=== PATIENT | female | born 1975 | race Caucasian/White ===

== ENCOUNTER 2017-08-18 10:59 | Emergency (ER) | payer MEDICAID ==
[~2017-08-18] VITALS: Ht 162.6 cm; Wt 90.7 kg
[~2017-08-18 10:59] MED LIST: AMOX875T PO; METH10TA4 PO
[2017-08-18] MEDS ORDERED: ESCI10TA10 PO (11:42)
[2017-08-18] MEDS ORDERED: NALT50TA PO (11:42)
[2017-08-18] MEDS ORDERED: LORazepam 2 MG/ML, 1ML IVPush ONE (12:00)
[2017-08-18] MEDS ORDERED: THIAMINE 100MG TABLET PO ONE (12:00)
[2017-08-18] MEDS ORDERED: SODIUM CHLORIDE 0.9% 1,000ML IVBOLUS ONE (12:00)
[2017-08-18] MEDS ORDERED: LORazepam 2 MG/ML, 1ML ONE (12:11)
[2017-08-18] MEDS ORDERED: THIAMINE 100MG TABLET ONE (12:11)
[2017-08-18 12:16] LABS: BASOPHILS % (AUTO) 1 % (0-1); EOSINOPHILS # (AUTO) 0.05 x10^3/uL (0-0.4); EOSINOPHILS % (AUTO) 1 % (1-7); LYMPHOCYTES % (AUTO) 26 % (22-44); MD NO; MEAN CORPUSCULAR HEMOGLOBIN 30.4 pg (27.0-34.8); MEAN CORPUSCULAR HGB CONC 33.7 g/dL (32.4-35.8); MEAN PLATELET VOLUME 7.9 fL (7.4-10.4); MONOCYTES # (AUTO) 0.54 x10^3/uL (0.2-0.8); MONOCYTES % (AUTO) 6 % (2-9); NEUTROPHILS # (AUTO) 6.34 x10^3/uL (1.8-6.8); NEUTROPHILS % (AUTO) 67 % (42-75); PLATELET COUNT 412 x10^3/uL (130-400); RED BLOOD COUNT 5.12 x10^6/uL (3.82-5.3); RED CELL DISTRIBUTION WIDTH 12.9 % (9.6-15.2)
[2017-08-18 12:27] LABS: AMPHETAMINE SCREEN, URINE Positive (Negative); BARBITURATE SCREEN, URINE Negative (Negative); BENZODIAZEPINE SCREEN, URINE Negative (Negative); CANNABINOID SCREEN, URINE Positive (Negative); COCAINE SCREEN, URINE Negative (Negative); METHADONE SCREEN, URINE Negative (Negative); OPIATE SCREEN, URINE Negative (Negative)
[2017-08-18 12:29] LABS: ALANINE AMINOTRANSFERASE 22 U/L (12-78); ALBUMIN 3.8 g/dL (3.4-5.0); ANION GAP 9 mmol/L (5-15); CALCIUM 8.2 mg/dL (8.5-10.1); CHLORIDE 107 mmol/L (98-107); CREATININE 0.73 mg/dL (0.55-1.02)
[2017-08-18 12:33] LABS: ALKALINE PHOSPHATASE 87 U/L (45-117); BILIRUBIN,TOTAL 0.4 mg/dL (0.2-1.0); TOTAL PROTEIN 7.2 g/dL (6.4-8.2)
[2017-08-18 15:02] VITALS: BP 103/63
== END 2017-08-18 16:26 | disposition left against medical advice (07) ==
LOC: ED 16:20
DX: T76.21XA Adult sexual abuse, suspected, initial encounter (principal); F10.220 Alcohol dependence with intoxication, uncomplicated; Z79.899 Other long term (current) drug therapy; Y04.8XXA Assault by other bodily force, initial encounter; Y93.89 Activity, other specified; Y92.89 Other specified places as the place of occurrence of the external cause; Y99.8 Other external cause status
CPT/HCPCS: 36415; 80053; 80307; 84703; 85025; 96374; 99284; J2060; J7030; 96361

== ENCOUNTER 2020-06-16 11:16 | Emergency (ER) | payer MEDICAID ==
[~2020-06-16] VITALS: Ht 160 cm; Wt 66.2 kg
[~2020-06-16 11:16] MED LIST changes: +ESCI10TA10 PO; +NALT50TA PO
[2020-06-16 11:36] VITALS: BP 107/56
--- NOTE | 2020-06-16 11:37 | NUR ---
first contact with pt. pt c/o llq abd pain radiating mid lower back. hx of hernia and had surgery for hernia. pt denies n/v/d. pt's aox4. resps even and unlabored. bp/spo2 monitors in place. call light within reach. edmd at bedside evaluating at this time.
== END 2020-06-16 12:02 | disposition home or self-care (01) ==
LOC: ED 11:47
DX: S39.012A Strain of muscle, fascia and tendon of lower back, initial encounter (principal); K43.9 Ventral hernia without obstruction or gangrene; X58.XXXA Exposure to other specified factors, initial encounter; Y93.89 Activity, other specified; Y92.89 Other specified places as the place of occurrence of the external cause; Y99.8 Other external cause status
CPT/HCPCS: 99281